=== PATIENT | male | born 1950 | race Caucasian/White ===

== ENCOUNTER → 2024-05-24 12:59 | Outpatient (REF) | payer MEDICARE, OTHER, SELFPAY | LOC: RAD 12:59 | PROVIDERS: FAMILY PHYSICIAN Family Medicine | DX: R10.9 Unspecified abdominal pain (principal) | CPT/HCPCS: 76700; 93975 ==

== ENCOUNTER 2025-06-17 09:39 | Emergency (ER) | payer OTHER, MEDICARE, SELFPAY ==
[2025-06-17 09:40] VITALS: BP 149/102
[2025-06-17 10:08] LABS: Hematocrit 44.8 % (39.0-52.0); Hemoglobin 15.0 g/dL (13.0-18.0); Mean Corp Hgb Conc. 33.5 g/dL (33.0-37.0); Mean Corpuscular Volume 93.1 fL (80.0-94.0); Nucleated Red Blood Cells % 0 % (-); Platelet Count 180 10^3/uL (130-400); Red Cell Dist. Width 13.3 % (11.5-14.5)
[2025-06-17 10:16] LABS: INR 1.16; PT 15.0 Sec (11.4-14.6)
[2025-06-17 10:22] LABS: ALT (SGPT) 31 U/L (0-50); AST (SGOT) 31 U/L (17-59); Albumin 4.7 g/dl (3.5-5.0); Alkaline Phosphatase 51 U/L (38-126); Blood Urea Nitrogen 20 mg/dl (9-20); Calcium 9.7 mg/dl (8.4-10.2); Carbon Dioxide 28 mmol/L (22-30); Chloride 104 mmol/L (98-107); Glucose 115 mg/dl (70-99); Potassium 4.2 mmol/L (3.5-5.1); Sodium 138 mmol/L (135-145); Total Protein 7.8 g/dl (6.3-8.2); eGFR > 60.00
[2025-06-17 10:33] LABS: Troponin I < 0.012 ng/ml
[2025-06-17 13:31] VITALS: BP 191/108
[2025-06-17 13:32] VITALS: BMI 27.8
--- NOTE | 2025-06-17 14:06 | ED.GENMED ---
History of Present Illness
General
Chief Complaint: Breathing Problem
Time Seen by Provider: 06/17/25 13:24
History of Present Illness
History of Present Illness:
74-year-old male without significant past medical history presenting to the emergency department for shortness of breath. Patient reports over the past several weeks he has been having progressive dyspnea. He has noticed the shortness of breath
with exertion, going up the stairs. Notes some mild swelling to his lower extremities, in his ankles. He called his primary care doctor today who advised that he come to the hospital. He denies any history of congestive heart failure. He denies
any associated chest pain. He denies any fever. He denies additional acute medical complaints.
Past History
Past History
ED Past Medical History: None
ED Past Surgical History: None
Social History
Tobacco: Non-smoker
Personal:
Living: with family
Employment: Retired
Phy Exam
Physical Exam
Physical Exam:
General: Well-appearing, no clinical signs of dehydration, nontoxic and in no acute distress
HEENT: protecting airway
Neck: appears supple
CV: Normal heart rate, regular rhythm
Resp: No accessory muscle use, no increased work of breathing, crackles at the bases
Abd: Soft and non-distended, no tenderness to palpation, normal bowel sounds
Extremities: No deformities, mild lower extremity swelling, symmetric
Neuro: alert, no focal neurologic deficit
: deferred
Rectal: deferred
Psych: Normal affect
Skin: Intact
Scores
Heart Failure Risk
Heart Failure Risk Score: Yes
History of Stroke or TIA: No
History of intubation for respiratory distress: No
Heart rate on ED arrival >/= 110: No
SaO2 <90% on arrival on room air: No
HR >/=110 during 3min walk test (or too ill to perform test): No
ECG has acute ischemic changes: No
Urea >/=12mmol/L (BUN 33.6mg/dL): No
Serum CO2>/=35mmol/L: No
Troponin I or T elevated to AL Level (0.4mg/dL): No
NT-proBNP >/=5,000ng/L (5,000pg/ml): No
HF Risk Score: 0
Admission Status: LOW RISK 2.8% Consider discharge to home with f/u visit to PCP/[facility]
Course
Orders/Labs/Results
Orders:
Orders
06/17/25 09:43
Electrocardiogram (*1) Urgent
Reason for Study: Chest Pain
EKG- Treatment ONCE
06/17/25 09:52
Complete Blood Count/With Diff Urgent
Comprehensive Metabolic Panel Urgent
NT-proBNP Urgent
Comment: ADD ON
Prothrombin Time Urgent
Troponin I Urgent
06/17/25 13:24
CR Chest - 2 Views Urgent
Comment:
Reason For Exam: sob
06/17/25 13:27
Add On- LAB Urgent
Tests Added?: pro-BNP
06/17/25 15:39
Carvedilol [Coreg] 3.125 mg PO NOW STA
Furosemide [Lasix] 20 mg PO NOW STA
Abnormal Lab Results
06/17/25
09:52
MCH 31.2 H pg
(27.0-31.0)
MPV 10.5 H fL
(7.4-10.4)
Absolute Lymphs (auto) 0.9 L 10^3/uL
(1.2-3.4)
Immature Gran % 0.8 H %
(0-0.5)
Lymphocytes % 18.5 L %
(20.5-51.1)
PT 15.0 H Sec
(11.4-14.6)
Creatinine 0.6 L mg/dL
(0.7-1.3)
Glucose 115 H mg/dl
(70-99)
06/17/25 09:52
06/17/25 09:52
Vital Signs
Initial and Last Documented VS:
Initial Vital Signs
Temp Pulse Resp BP Pulse Ox
100.0 F 83 18 149/102 95
06/17/25 09:40 06/17/25 09:40 06/17/25 09:40 06/17/25 09:40 06/17/25 09:40
Last Documented Vital Signs
Temp Pulse Resp BP Pulse Ox
100.0 F 79 22 159/105 91
06/17/25 09:40 06/17/25 15:15 06/17/25 15:15 06/17/25 15:00 06/17/25 15:15
MDM/Problems Addressed
MDM/Problems Addressed:
74-year-old male presenting to the emergency department with dyspnea on exertion. Vital signs on arrival significant for high blood pressure.
On exam patient is resting comfortably, no acute distress, no respiratory distress. Clinically symptoms appear consistent with congestive heart failure. Notes some progressive dyspnea on exertion, some lower extremity swelling. In addition, on
exam, crackles at the bases. EKG obtained, without acute evidence of ischemia or concern for ACS. Will obtain laboratory analysis including BNP, as well as chest x-ray imaging.
15:30 -BNP within normal limits. Chest x-ray without significant sign of vascular congestion. Continue to clinically suspect new onset CHF, mild. Blood pressure has improved. In discussion with cardiology, feel reasonable to start on 20 mg of
Lasix and follow-up in the office, with blood pressure control with Coreg. This was explained to patient who is agreeable with plan. Strict return precautions were communicated and patient verbalized understanding
*Pulse Oximetry
SaO2: 97
Oxygen Mode of Delivery: Room air
Patient hypoxic: no
*EKG
Interpreted by ED Provider?: Yes
EKG Intrepretation Date: 06/17/25
EKG Intrepretation Time: 14:12
Interpretation: normal
Heart Rate: 85
Rate: normal
Rhythm: sinus
[place]: normal axis
QRS Pattern: normal QRS and left vent hypertrophy
Ischemia: no ischemia
*Critical Care Note
Total Time (30-74mins, 75-104mins- exclusive of procedures): Not Applicable
ED Attending Note
-
Portions of this chart may have been created with voice recognition software.� Occasional wrong word or��sound alike� substitutions may have occurred due to the inherent limitations of voice recognition software.
Discharge Plan
Departure
Patient Disposition: Home (Routine Discharge)
Date of Disposition: 06/17/25
Time of Disposition: 15:40
Patient with high blood pressure during this ER visit?: Yes
Condition: Good
Discharge Problem:
Dyspnea on exertion, Hypertension
Instructions: *[facility] Heart Failure Instructions, BLOOD PRESSURE
Prescriptions:
New
carvedilol [Coreg] 3.125 mg tablet
3.125 mg PO BID 30 Days Qty: 60 0RF
furosemide [Lasix] 20 mg tablet
20 mg PO DAILY Qty: 30 0RF
No Action
clindamycin HCl 300 MG capsule
300 mg PO QID
Patient Comments:
07/12/17: Prescribed 07/07/17, x 7 days, by dentist for root canal
ibuprofen [Advil Liqui-Gel] 200 MG capsule
400 mg PO DAILYPRN PRN (Reason: hernia pain)
acetaminophen 325 MG tablet
650 mg PO Q4HPRN PRN (Reason: mild to moderate pain) Qty: 0 0RF
polyethylene glycol 3350 17 GRAMS powder in packet
17 grams PO DAILYPRN PRN (Reason: constipation) Qty: 0 0RF
hydrocodone-acetaminophen 1 TABLET tablet
1 - 2 tab PO Q4HPRN PRN (Reason: moderate to severe pain) Qty: 10 0RF
prednisone 20 mg tablet
40 mg PO DAILY 5 Days Qty: 10 0RF
Referrals:
Chloe Booth CRNP [Family Provider, General]
Activity Restrictions/Additional Instructions:
You were seen in the emergency department for shortness of breath
You were found to have high blood pressure and concern for mild new onset congestive heart failure. In discussion with cardiology, we are recommending blood pressure medication as well as a water pill. Please take as directed and follow-up closely
with the mold closer helper
Return to the emergency department for any worsening of your symptoms, or any development of chest pain, difficulty breathing, abdominal pain with persistent vomiting and inability to tolerate food or liquid by mouth (concern for dehydration),
weakness, headache or confusion, fever greater than 100.4, or any additional symptoms that are concerning to you.
Thank you for choosing [facility].
Interventions
Interventions:
*General Assessment Last Done: 06/17/25 13:28
*Neglect/Abuse Screening Last Done: 06/17/25 13:32
*ED COVID-19 Vaccine History Last Done: 06/17/25 13:28
*ED Influenza Vaccine History Last Done: 06/17/25 13:28
[facility] Risk Assessment Tool Last Done: 06/17/25 13:28
*Risk Screen - Suicide (C-SSRS) Last Done: 06/17/25 09:40
*Nursing Disposition Last Done: 06/17/25 15:53
ED- Cardiac Assessment Last Done: 06/17/25 13:32
ED- Pulmonary Assessment Last Done: 06/17/25 13:32
Discharge Date and Time
Print Language: MONGOLIAN
[2025-06-17 14:51] VITALS: BP 163/99
[2025-06-17 15:00] VITALS: BP 159/105
[2025-06-17] MEDS: COREG 3.125 MG PO (15:46)
[2025-06-17] MEDS: LASIX 20 MG PO (15:46)
== END 2025-06-17 16:03 | disposition home or self-care (01) ==
LOC: EMR 09:39
PROVIDERS: EMERGENCY PHYSICIAN Student in an Organized Health Care Education/Training Program; FAMILY PHYSICIAN Nurse Practitioner Acute Care
DX: R06.02 Shortness of breath (principal); I10 Essential (primary) hypertension
CPT/HCPCS: 99284; 71046; 80053; 83880; 84484; 85025; 85610; 93005